=== PATIENT | male | born 1975 | race Caucasian/White ===

== ENCOUNTER 2021-08-05 09:52 | Outpatient (CLI) | payer OTHER, SELFPAY ==
[2021-08-05 10:20] VITALS: BP 144/100; PULSE 86; RESP 18; TEMP 36.9; O2SAT 98; BMI 45.3
[2021-08-05] MEDS: 0.9% Saline Lock 10 ML Syringe IV (10:42)
[2021-08-05 11:14] VITALS: BP 141/95; PULSE 60; RESP 16; TEMP 37.1; O2SAT 97
[2021-08-05 12:05] VITALS: BP 133/93; PULSE 62; RESP 16; TEMP 36.9; O2SAT 97
== END 2021-08-05 12:14 | disposition home or self-care (01) ==
LOC: MS3OUT 09:52 → MS3 09:53
PROVIDERS: Referring Provider Nurse Practitioner Adult Health; Visit Provider Nurse Practitioner Adult Health
DX: Z23 Encounter for immunization (principal); U07.1 COVID-19
CPT/HCPCS: J7050; M0245; Q0245; A4216